=== PATIENT | female | born 1990 | race Caucasian/White ===

== ENCOUNTER 2017-04-29 02:37 | Emergency (ER) | payer OTHER ==
[~2017-04-29] VITALS: Ht 157.5 cm; Wt 75.0 kg
[2017-04-29 02:43] VITALS: BP 123/76; PULSE 76; RESP 18; TEMP 97.7; O2SAT 99
[2017-04-29] MEDS ORDERED: SODIUM CHLOR 0.9% 1000 ML INJ 1,000 ML IV SCH (02:58)
[2017-04-29] MEDS ORDERED: SODIUM CHLORIDE 0.9% FLUSH 10 ML FLUSH IV FLUSH PRN (03:00)
[2017-04-29] MEDS ORDERED: ONDANSETRON HCL 4 MG/2 ML VIAL IVP ONE (03:00)
[2017-04-29] MEDS ORDERED: DICYCLOMINE HCL 10 MG CAP PO ONE (03:00)
[2017-04-29 03:30] VITALS: RESP 18; O2SAT 99
[2017-04-29 03:38] LABS: AUTOMATED NEUTROPHIL # 7.7 TH/MM3 (1.8-7.7); BASOPHIL % 0.5 % (0.0-2.0); EOSINOPHIL % 0.3 % (0.0-4.0); HEMOGLOBIN 13.9 GM/DL (11.6-15.3); LYMPH % 15.4 % (9.0-44.0); LYMPHOCYTE # 1.5 TH/MM3 (1.0-4.8); MEAN CELL VOLUME 82.8 FL (80.0-100.0); MEAN CORPUSCULAR HEMOGLOBIN 27.5 PG (27.0-34.0); MEAN CORPUSCULAR HGB CONC 33.2 % (32.0-36.0); MEAN PLATELET VOLUME 8.7 FL (7.0-11.0); MONO % 5.1 % (0.0-8.0); MONOCYTE # 0.5 TH/MM3 (0-0.9); NEUT % 78.7 % (16.0-70.0); PLATELET COUNT 282 TH/MM3 (150-450); RED BLOOD COUNT 5.07 MIL/MM3 (4.00-5.30); RED CELL DISTRIBUTION WIDTH 12.8 % (11.6-17.2); WHITE BLOOD COUNT 9.7 TH/MM3 (4.0-11.0)
[2017-04-29 03:43] LABS: CHLORIDE 105 MEQ/L (98-107); SODIUM (NA) 137 MEQ/L (136-145)
[2017-04-29 03:46] LABS: CALCIUM 8.7 MG/DL (8.5-10.1)
[2017-04-29 03:47] LABS: ALBUMIN 3.8 GM/DL (3.4-5.0); BICARBONATE 25.4 MEQ/L (21.0-32.0); BLOOD UREA NITROGEN 8 MG/DL (7-18); GLUCOSE,RANDOM 110 MG/DL (74-106); LIPASE 127 U/L (73-393)
[2017-04-29 03:50] LABS: ALT (GPT) 21 U/L (10-53); AST (GOT) 13 U/L (15-37); CREATININE 0.72 MG/DL (0.50-1.00); GLOMERULAR FILTRATION RATE 96 ML/MIN (>89)
[2017-04-29 03:51] LABS: TOTAL BILIRUBIN ADULT 0.3 MG/DL (0.2-1.0); TOTAL PROTEIN 8.3 GM/DL (6.4-8.2)
[2017-04-29 03:52] LABS: ALKALINE PHOSPHATASE 102 U/L (45-117)
--- NOTE | 2017-04-29 04:01 | PD ---
HPI Chief Complaint: GI Complaint Time Seen by Provider: 02:46 Travel History International Travel<30 days: No Contact w/Intl Traveler<30days: No Traveled to known affect area: No History of Present Illness HPI This is a 26 year old female who presents to the emergency department with abdominal discomfort that has been going on for one year. She says for one year intermittently she has post-prandial onset of abdominal pain that feels like it is a wave going across her abdomen, moderate severity, associated with vomiting and diarrhea. This evening she had onset of the same pain at around 7 PM, and she had bright red blood in her stools which concerned her so she came to the emergency department. She has not seen a doctor regarding these symptoms. Her father has a history of a "colon problem" for which he watches his diet. PFS Past Medical History Medical History: Denies Significant Hx Tetanus Vaccination: > 5 Years Influenza Vaccination: Yes ?: Unknown LMP: Implant Past Surgical History Surgical History: No Previous Surgery Social History Alcohol Use: Yes (Occ) Tobacco Use: No Substance Use: No Allergies-Medications (Allergen,Severity, Reaction): Coded Allergies: No Known Allergies (Unverified , 04/29/17) Reported Meds & Prescriptions Reported Meds & Active Scripts Active No Active Prescriptions or Reported Medications Review of Systems Except as stated in HPI: all other systems reviewed are Neg Physical Exam Narrative GENERAL: well appearing, no acute distress SKIN: Warm and dry. HEAD: Normocephalic. EYES: No scleral icterus. No injection or drainage. NECK: Supple, trachea midline. CARDIOVASCULAR: Regular rate and rhythm without murmurs. RESPIRATORY: Breath sounds equal bilaterally. No accessory muscle use. GASTROINTESTINAL: Abdomen soft, mildly tender to palpation in the epigastrium and in the left upper quadrant with no rebound/guarding. MUSCULOSKELETAL: No cyanosis, or edema. NEURO: Moving all extremities Data Data Last Documented VS Vital Signs Date Time Temp Pulse Resp B/P (MAP) Pulse Ox O2 Delivery O2 Flow Rate FiO2 04/29/17 03:30 18 99 Room Air 04/29/17 02:43 97.7 76 Orders Orders Complete Blood Count With Diff (04/29/17 02:58) Comprehensive Metabolic Panel (04/29/17 02:58) Lipase (04/29/17 02:58) Iv Access Insert/Monitor (04/29/17 02:58) Ecg Monitoring (04/29/17 02:58) Oximetry (04/29/17 02:58) Ondansetron Inj (Zofran Inj) (04/29/17 03:00) Sodium Chlor 0.9% 1000 Ml Inj (Ns 1000 M (04/29/17 02:58) Sodium Chloride 0.9% Flush (Ns Flush) (04/29/17 03:00) Dicyclomine (Bentyl) (04/29/17 03:00) Ed Discharge Order (04/29/17 04:01) Labs Laboratory Tests Test 04/29/17 03:27 White Blood Count 9.7 TH/MM3 Red Blood Count 5.07 MIL/MM3 Hemoglobin 13.9 GM/DL Hematocrit 42.0 % Mean Corpuscular Volume 82.8 FL Mean Corpuscular Hemoglobin 27.5 PG Mean Corpuscular Hemoglobin Concent 33.2 % Red Cell Distribution Width 12.8 % Platelet Count 282 TH/MM3 Mean Platelet Volume 8.7 FL Neutrophils (%) (Auto) 78.7 % Lymphocytes (%) (Auto) 15.4 % Monocytes (%) (Auto) 5.1 % Eosinophils (%) (Auto) 0.3 % Basophils (%) (Auto) 0.5 % Neutrophils # (Auto) 7.7 TH/MM3 Lymphocytes # (Auto) 1.5 TH/MM3 Monocytes # (Auto) 0.5 TH/MM3 Eosinophils # (Auto) 0.0 TH/MM3 Basophils # (Auto) 0.0 TH/MM3 CBC Comment DIFF FINAL Differential Comment Blood Urea Nitrogen 8 MG/DL Creatinine 0.72 MG/DL Random Glucose 110 MG/DL Total Protein 8.3 GM/DL Albumin 3.8 GM/DL Calcium Level 8.7 MG/DL Alkaline Phosphatase 102 U/L Aspartate Amino Transf (AST/SGOT) 13 U/L Alanine Aminotransferase (ALT/SGPT) 21 U/L Total Bilirubin 0.3 MG/DL Sodium Level 137 MEQ/L Potassium Level 3.6 MEQ/L Chloride Level 105 MEQ/L Carbon Dioxide Level 25.4 MEQ/L Anion Gap 7 MEQ/L Estimat Glomerular Filtration Rate 96 ML/MIN Lipase 127 U/L MDM Medical Decision Making Medical Screen Exam Complete: Yes Emergency Medical Condition: Yes Interpretation(s) no leukocytosis electrolytes within normal limits Differential Diagnosis gastritis, gastroenteritis, pancreatitis, inflammatory bowel disease, appendicitis, cholecystitis Narrative Course This is a 26 year old female who presents to the emergency department with abdominal discomfort and vomiting for one year. She has had bloody stools today which concerned her. Her vital signs are reassuring and her labs are all unremarkable. She appears very well on exam, but a bit anxious. I think she requires outpatient follow up with gastroenterology for a colonoscopy. She may have irritable bowel disease or inflammatory bowel disease and I discussed this with her. I don't think imaging is warranted in the ED given the chronicity of her symptoms. Pt was discharged home. Diagnosis Primary Impression: Abdominal pain Qualified Codes: R10.84 - Generalized abdominal pain Referrals: [facility] Patient Instructions: General Instructions Additional Instructions: If you develop severe abdominal pain, persistent vomiting, inability to eat or drink or lightheadedness or dizziness return to the emergency department. Follow up with a propellant charge zone assembler as soon as possible. Scripts No Active Prescriptions or Reported Meds Disposition: 01 DISCHARGE HOME Condition: Stable Ashley Carias MD Apr 29, 2017 04:01
[2017-04-29 04:31] VITALS: BP 122/82
== END 2017-04-29 04:42 | disposition home or self-care (01) ==
LOC: PHED 02:37
DX: R10.84 Generalized abdominal pain (principal); K92.1 Melena
CPT/HCPCS: 80053; 83690; 85025; 99283